=== PATIENT | male | born 1940 | race Caucasian/White ===

== ENCOUNTER 2021-02-01 22:52 | Observation (INO) ==
[2021-02-02 03:45] LABS: Adenovirus Not Detected (Not Detect); Coronavirus 229E Not Detected (Not Detect); Coronavirus HKU1 Not Detected (Not Detect); Coronavirus NL63 Not Detected (Not Detect); Coronavirus OC43 Not Detected (Not Detect)
[2021-02-02 03:46] LABS: Bordetella Pertussis Not Detected (Not Detect); Chlamydophila pneumoniae Not Detected (Not Detect); Human Metapneumovirus Not Detected (Not Detect); Human Rhinovirus/Enterovirus Not Detected (Not Detect); Influenza A Subtype 2009 H1 Not Detected (Not Detect); Influenza B Not Detected (Not Detect); Mycoplasma pneumoniae Not Detected (Not Detect); Parainfluenza Virus 1 Not Detected (Not Detect); Parainfluenza Virus 2 Not Detected (Not Detect); Parainfluenza Virus 3 Not Detected (Not Detect); Parainfluenza Virus 4 Not Detected (Not Detect); Respiratory Syncytial Virus Not Detected (Not Detect); SARS-CoV-2 DETECTED (Not Detect)
[2021-02-02 05:01] LABS: Alanine Aminotransferase 94 Units/L (7-52); Albumin 3.3 g/dL (3.5-5.7); Albumin/Globulin Ratio 0.9 (1.1-2.2); Alkaline Phosphatase 67 Units/L (34-104); Aspartate Amino Transferase 66 Units/L (13-39); BUN/Creatinine Ratio 39 (6-26); Basophils % 0.1 %; Bilirubin,Direct 0.3 mg/dL (0.0-0.2); Bilirubin,Indirect 0.6 mg/dL (0.0-1.0); Bilirubin,Total 0.9 mg/dL (0.3-1.0); Blood Urea Nitrogen 53 mg/dL (8-23); Calcium 8.9 mg/dL (8.6-10.3); Carbon Dioxide 29 mEq/L (23-29); Chloride 104 mEq/L (98-107); Eosinophils # 0.2 K/mcL (0.0-0.6); Eosinophils % 1.8 %; Globulin 3.8 g/dL (2.4-3.5); Glucose 118 mg/dL (70-105); Hematocrit 44.3 % (37.5-50.1); Hemoglobin 15.3 g/dL (12.9-16.9); Lymphocytes # 0.9 K/mcL (0.6-4.6); Lymphocytes % 11.3 %; Magnesium 1.9 mg/dL (1.6-2.6); Mean Corpuscular HGB Conc 34.5 g/dL (31.6-35.5); Mean Corpuscular Hemoglobin 31.2 pg (28.0-33.3); Mean Corpuscular Volume 90.4 fL (83.0-100.0); Mean Platelet Volume 11.3 fL (9.4-12.4); Monocytes # 1.1 K/mcL (0.0-1.3); Monocytes % 13.1 %; Neutrophils # 5.9 K/mcL (1.6-8.9); Osmolality,Calculated 313 (280-300); Platelet Count 330 K/mcL (140-400); Potassium 3.2 mEq/L (3.5-5.1); Red Cell Distribution Width 13.2 % (11.5-14.5); Segmented Neutrophils % 72.7 %; Sodium 144 mEq/L (136-145); Total Protein 7.1 g/dL (6.4-8.9); Troponin I 0.09 ng/mL (< 0.04); White Blood Count 8.1 K/mcL (4.3-11.1); eGFR For African Americans > 60 (> 60); eGFR For Non-African Americans 51 (> 60)
[2021-02-02] MEDS ORDERED: Potassium Chloride Elixir 20 MEQ/15 ML UDC PO ONE (06:18)
[2021-02-02 06:46] LABS: Bacteria,Urine Few per hpf (None-Few); Bilirubin,Urine Negative (Negative); Blood,Urine Trace (Negative); Clarity,Urine Turbid (Clear); Color,Urine Yellow (Yellow); Glucose,Urine (UA) Normal (Normal); Ketones,Urine Negative (Negative); Leukocyte Esterase,Urine Large (Negative); Mucus,Urine Few per lpf (None-Few); Nitrite,Urine Negative (Negative); Protein,Urine 50 mg/dL (Neg-Trace); Specific Gravity,Urine 1.028 (1.010-1.025); Squamous Epithelial Cell,Urine Few per hpf (None-Few); Urobilinogen,Urine Normal (Normal)
[2021-02-02] MEDS ORDERED: cefTRIAXone 1,000 MG in 0.9 % Sodium Chloride Mini Bag 100 ML IVPB ONE (07:15)
[2021-02-02] MEDS ORDERED: Naloxone 0.4 MG/ML INJ IVP PRN (08:34)
[2021-02-02] MEDS ORDERED: Ondansetron ODT 4 MG TAB.RAPDIS SL PRN (08:44)
[2021-02-02] MEDS ORDERED: Melatonin 3 MG TABLET PO PRN (08:44)
[2021-02-02] MEDS ORDERED: Mag Hydrox/Al Hydrox/Simeth 30 ML UDC PO PRN (08:44)
[2021-02-02 10:09] LABS: D-Dimer 3965 ng/mLFEU (0-500)
[2021-02-02] MEDS ORDERED: 0.9 % Sodium Chloride 500 ML IVC ONE (10:25)
[2021-02-02 10:42] LABS: Fibrinogen 610 mg/dL (169-393)
[2021-02-02 10:55] LABS: Troponin I 0.04 ng/mL (< 0.04)
[2021-02-02 12:02] LABS: C-Reactive Protein 49 mg/L (Less than 10)
[2021-02-02] MEDS ORDERED: Ibuprofen 200 MG TABLET PO PRN (12:26)
[2021-02-02] MEDS ORDERED: Ibuprofen 400 MG TABLET PO PRN (15:45)
[2021-02-03 03:29] LABS: Basophils % 0.4 %; Eosinophils # 0.3 K/mcL (0.0-0.6); Eosinophils % 3.1 %; Hematocrit 41.3 % (37.5-50.1); Hemoglobin 14.1 g/dL (12.9-16.9); Immature Granulocytes % 1.2 % (0-4); Lymphocytes # 1.1 K/mcL (0.6-4.6); Lymphocytes % 12.9 %; Mean Corpuscular HGB Conc 34.1 g/dL (31.6-35.5); Mean Corpuscular Hemoglobin 30.9 pg (28.0-33.3); Mean Corpuscular Volume 90.4 fL (83.0-100.0); Mean Platelet Volume 11.1 fL (9.4-12.4); Monocytes # 1.1 K/mcL (0.0-1.3); Monocytes % 12.5 %; Platelet Count 286 K/mcL (140-400); Red Blood Count 4.57 M/mcL (4.19-5.50); Red Cell Distribution Width 13.1 % (11.5-14.5); Segmented Neutrophils % 69.9 %; White Blood Count 8.5 K/mcL (4.3-11.1)
[2021-02-03 03:38] LABS: Alanine Aminotransferase 86 Units/L (7-52); Albumin/Globulin Ratio 0.9 (1.1-2.2); Alkaline Phosphatase 70 Units/L (34-104); Aspartate Amino Transferase 60 Units/L (13-39); BUN/Creatinine Ratio 32 (6-26); Bilirubin,Total 0.8 mg/dL (0.3-1.0); Blood Urea Nitrogen 35 mg/dL (8-23); Calcium 8.3 mg/dL (8.6-10.3); Carbon Dioxide 24 mEq/L (23-29); Chloride 109 mEq/L (98-107); Globulin 3.3 g/dL (2.4-3.5); Glucose 105 mg/dL (70-105); Magnesium 1.6 mg/dL (1.6-2.6); Osmolality,Calculated 298 (280-300); Potassium 3.4 mEq/L (3.5-5.1); Sodium 140 mEq/L (136-145); Total Protein 6.3 g/dL (6.4-8.9); Uric Acid 7.7 mg/dL (2.3-7.6); eGFR For African Americans > 60 (> 60); eGFR For Non-African Americans > 60 (> 60)
[2021-02-03] MEDS ORDERED: NIFEdipine Immed Rel 10 MG CAPSULE PO ONE (04:00)
[2021-02-03] MEDS: *HR* Enoxaparin 40 MG/0.4 ML SYRINGE SQ SCH (05:44)
[2021-02-03] MEDS ORDERED: methylPREDNISolone 125 MG/2 ML VIAL IVP PRN (08:16)
[2021-02-03] MEDS ORDERED: Ondansetron 4 MG/2 ML VIAL IVP PRN (08:16)
[2021-02-03] MEDS ORDERED: ETESEVIMAB IVPB ONE (08:16)
[2021-02-03] MEDS ORDERED: SODIUM CHLORIDE 0.9% IVPB ONE (08:16)
[2021-02-03] MEDS ORDERED: EPINEPHrine 1 MG/ML VIAL IM PRN (08:16)
[2021-02-03] MEDS ORDERED: BAMLANIVIMAB IVPB ONE (08:16)
[2021-02-03] MEDS: cefTRIAXone 1,000 MG in Water for inj. (sterile) 10 ML IVP SCH (09:44)
[2021-02-03] MEDS ORDERED: *HR* OxyCODONE Immed Rel 5 MG TABLET PO ONE (14:54)
[2021-02-04] MEDS: *HR* Enoxaparin 40 MG/0.4 ML SYRINGE SQ SCH (03:45)
[2021-02-04] MEDS ORDERED: *HR* LORazepam 2 MG/ML VIAL IVP ONE (03:53)
[2021-02-04] MEDS: cefTRIAXone 1,000 MG in Water for inj. (sterile) 10 ML IVP SCH (08:35)
[2021-02-04] MEDS ORDERED: Morphine Sulfate 2 MG/ML SYRINGE IVP STA (09:04)
[2021-02-04] MEDS ORDERED: Morphine Sulfate 2 MG/ML SYRINGE IVP PRN (09:13)
[2021-02-04] MEDS ORDERED: Fluconazole 150 MG TABLET PO ONE (09:13)
[2021-02-04] MEDS ORDERED: Perflutren Lipid Microsphere 1.3 ML in 0.9 % Sodium Chloride 8.7 ML IVP PRN (09:20)
[2021-02-04] MEDS: Nystatin Ointment 15 GM TUBE TP SCH ×4 (10:14→21:31)
[2021-02-04] MEDS: Doxycycline 100 MG CAPSULE PO SCH ×2 (10:14→21:28)
[2021-02-04] MEDS: Nystatin POWDER 30 GM BOTTLE TP SCH ×2 (10:14→21:32)
[2021-02-04] MEDS: predniSONE 20 MG TABLET PO SCH (10:14)
[2021-02-05] MEDS: *HR* Enoxaparin 40 MG/0.4 ML SYRINGE SQ SCH (05:37)
[2021-02-05] MEDS: Doxycycline 100 MG CAPSULE PO SCH ×2 (07:37→20:11)
[2021-02-05] MEDS: predniSONE 20 MG TABLET PO SCH (07:37)
[2021-02-05] MEDS: cefTRIAXone 1,000 MG in Water for inj. (sterile) 10 ML IVP SCH (07:38)
[2021-02-05] MEDS: Nystatin Ointment 15 GM TUBE TP SCH ×4 (07:39→20:22)
[2021-02-05] MEDS: Nystatin POWDER 30 GM BOTTLE TP SCH ×3 (07:39→20:22)
[2021-02-06] MEDS: *HR* Enoxaparin 40 MG/0.4 ML SYRINGE SQ SCH (06:20)
[2021-02-06] MEDS: cefTRIAXone 1,000 MG in Water for inj. (sterile) 10 ML IVP SCH (07:59)
[2021-02-06] MEDS: predniSONE 20 MG TABLET PO SCH (07:59)
[2021-02-06] MEDS: Nystatin Ointment 15 GM TUBE TP SCH ×4 (08:00→20:33)
[2021-02-06] MEDS: Doxycycline 100 MG CAPSULE PO SCH ×2 (08:00→20:28)
[2021-02-06] MEDS: Nystatin POWDER 30 GM BOTTLE TP SCH ×3 (08:00→20:33)
[2021-02-07] MEDS: *HR* Enoxaparin 40 MG/0.4 ML SYRINGE SQ SCH (06:09)
[2021-02-07] MEDS: Doxycycline 100 MG CAPSULE PO SCH ×2 (09:11→21:18)
[2021-02-07] MEDS: predniSONE 20 MG TABLET PO SCH (09:12)
[2021-02-07] MEDS: Nystatin POWDER 30 GM BOTTLE TP SCH ×3 (09:13→21:25)
[2021-02-07] MEDS: cefTRIAXone 1,000 MG in Water for inj. (sterile) 10 ML IVP SCH (09:13)
[2021-02-07] MEDS: Nystatin Ointment 15 GM TUBE TP SCH ×4 (09:14→21:25)
[2021-02-07 13:51] LABS: Basophils % 0.1 %; Eosinophils % 0.3 %; Hematocrit 41.8 % (37.5-50.1); Hemoglobin 14.1 g/dL (12.9-16.9); Immature Granulocytes % 0.7 % (0-4); Lymphocytes # 0.5 K/mcL (0.6-4.6); Lymphocytes % 4.7 %; Mean Corpuscular HGB Conc 33.7 g/dL (31.6-35.5); Mean Corpuscular Hemoglobin 30.9 pg (28.0-33.3); Mean Corpuscular Volume 91.7 fL (83.0-100.0); Monocytes # 1.1 K/mcL (0.0-1.3); Monocytes % 9.4 %; Neutrophils # 9.5 K/mcL (1.6-8.9); Platelet Count 271 K/mcL (140-400); Red Blood Count 4.56 M/mcL (4.19-5.50); Segmented Neutrophils % 84.8 %; White Blood Count 11.2 K/mcL (4.3-11.1)
[2021-02-07 14:09] LABS: BUN/Creatinine Ratio 24 (6-26); Blood Urea Nitrogen 23 mg/dL (8-23); Calcium 8.7 mg/dL (8.6-10.3); Carbon Dioxide 27 mEq/L (23-29); Chloride 103 mEq/L (98-107); Glucose 161 mg/dL (70-105); Osmolality,Calculated 291 (280-300); Potassium 3.9 mEq/L (3.5-5.1); Sodium 137 mEq/L (136-145); eGFR For African Americans > 60 (> 60); eGFR For Non-African Americans > 60 (> 60)
[2021-02-07] MEDS: Indomethacin 25 MG CAPSULE PO SCH (18:13)
[2021-02-08 09:47] LABS: Basophils % 0.4 %; Eosinophils % 0.4 %; Hematocrit 41.7 % (37.5-50.1); Hemoglobin 14.3 g/dL (12.9-16.9); Immature Granulocytes % 1.6 % (0-4); Lymphocytes # 1.6 K/mcL (0.6-4.6); Lymphocytes % 14.4 %; Mean Corpuscular HGB Conc 34.3 g/dL (31.6-35.5); Mean Corpuscular Hemoglobin 30.5 pg (28.0-33.3); Mean Corpuscular Volume 88.9 fL (83.0-100.0); Monocytes # 1.3 K/mcL (0.0-1.3); Monocytes % 12.1 %; Neutrophils # 7.8 K/mcL (1.6-8.9); Platelet Count 313 K/mcL (140-400); Red Blood Count 4.69 M/mcL (4.19-5.50); Red Cell Distribution Width 13.1 % (11.5-14.5); Segmented Neutrophils % 71.1 %; White Blood Count 10.9 K/mcL (4.3-11.1)
[2021-02-08 10:02] LABS: BUN/Creatinine Ratio 30 (6-26); Blood Urea Nitrogen 31 mg/dL (8-23); Calcium 8.8 mg/dL (8.6-10.3); Carbon Dioxide 25 mEq/L (23-29); Chloride 105 mEq/L (98-107); Glucose 119 mg/dL (70-105); Osmolality,Calculated 296 (280-300); Sodium 139 mEq/L (136-145); eGFR For African Americans > 60 (> 60); eGFR For Non-African Americans > 60 (> 60)
[2021-02-08] MEDS: Indomethacin 25 MG CAPSULE PO SCH ×3 (11:14→18:31)
[2021-02-08] MEDS: Doxycycline 100 MG CAPSULE PO SCH ×2 (11:14→20:39)
[2021-02-08] MEDS: cefTRIAXone 1,000 MG in Water for inj. (sterile) 10 ML IVP SCH (11:14)
[2021-02-08] MEDS: predniSONE 20 MG TABLET PO SCH (11:14)
[2021-02-08] MEDS: *HR* Enoxaparin 40 MG/0.4 ML SYRINGE SQ SCH (11:14)
[2021-02-08] MEDS: Nystatin Ointment 15 GM TUBE TP SCH ×4 (11:15→20:39)
[2021-02-08] MEDS: Nystatin POWDER 30 GM BOTTLE TP SCH ×3 (11:15→20:39)
[2021-02-08 16:07] LABS: Source of Body Fluid left olecranon bursa
[2021-02-08 20:07] LABS: Appearance of Body Fluid Cloudy (Clear); Volume of Body Fluid 0 mL
[2021-02-09 04:14] LABS: Basophils % 0.2 %; Hematocrit 42.7 % (37.5-50.1); Hemoglobin 14.3 g/dL (12.9-16.9); Immature Granulocytes % 1.3 % (0-4); Lymphocytes # 0.9 K/mcL (0.6-4.6); Mean Corpuscular HGB Conc 33.5 g/dL (31.6-35.5); Mean Corpuscular Hemoglobin 30.6 pg (28.0-33.3); Mean Corpuscular Volume 91.2 fL (83.0-100.0); Monocytes % 9.7 %; Neutrophils # 7.9 K/mcL (1.6-8.9); Platelet Count 284 K/mcL (140-400); Red Blood Count 4.68 M/mcL (4.19-5.50); Red Cell Distribution Width 13.2 % (11.5-14.5); Segmented Neutrophils % 79.8 %; White Blood Count 9.9 K/mcL (4.3-11.1)
[2021-02-09 05:26] LABS: BUN/Creatinine Ratio 34 (6-26); Blood Urea Nitrogen 34 mg/dL (8-23); Calcium 8.9 mg/dL (8.6-10.3); Carbon Dioxide 23 mEq/L (23-29); Chloride 106 mEq/L (98-107); Glucose 110 mg/dL (70-105); Osmolality,Calculated 298 (280-300); Potassium 4.2 mEq/L (3.5-5.1); Sodium 140 mEq/L (136-145); eGFR For African Americans > 60 (> 60); eGFR For Non-African Americans > 60 (> 60)
[2021-02-09] MEDS: *HR* Enoxaparin 40 MG/0.4 ML SYRINGE SQ SCH (05:54)
[2021-02-09] MEDS: Indomethacin 25 MG CAPSULE PO SCH ×3 (08:02→16:53)
[2021-02-09] MEDS: Doxycycline 100 MG CAPSULE PO SCH (08:03)
[2021-02-09] MEDS: Nystatin Ointment 15 GM TUBE TP SCH ×3 (08:20→16:26)
[2021-02-09] MEDS: Nystatin POWDER 30 GM BOTTLE TP SCH ×2 (08:20→14:24)
[2021-02-09 15:58] VITALS: BP 171/77; PULSE 77; TEMP 97.3; O2SAT 95
== END 2021-02-09 19:09 | disposition other institution (70) ==
LOC: 3ANU 22:52 → EMEROOARM 22:52 → SUATTDRO 02-02 08:30 → 3ANU 02-02 09:04
PROVIDERS: ADMIT Family Medicine; ATTEND Internal Medicine